=== PATIENT | male | born 1995 | race Caucasian/White ===

== ENCOUNTER 2018-11-05 13:35 | Emergency (ER) | payer SELFPAY ==
[~2018-11-05] VITALS: Ht 162.6 cm; Wt 74.0 kg
[2018-11-05] MEDS ORDERED: SODIUM CHLORIDE 0.9% 1,000 ML IV ONE (15:09)
[2018-11-05 16:09] LABS: BASOPHILS % 0.6 % (0.0-2.0); HEMATOCRIT. 45.4 % (42.0-52.0); HEMOGLOBIN. 15.7 g/dL (14.0-18.0); LYMPHOCYTES % 36.3 % (20.0-50.0); MEAN CORPUSCULAR HEMOGLOBIN 31.8 pg (28.0-32.0); MEAN CORPUSCULAR VOLUME 92.3 fL (80.0-94.0); MEAN PLATELET VOLUME 7.8 fl (7.4-10.4); MONOCYTES % 7.4 % (2.0-8.0); NEUTROPHILS % 54.7 % (40.0-76.0); PLATELET 378 x1000/uL (130-400); RED BLOOD CELL COUNT 4.92 mill/uL (4.7-6.1); RED CELL DISTRIBUTION WIDTH 13.4 % (11.6-14.6)
[2018-11-05 16:10] LABS: CHLORIDE 101 mEq/L (98-107)
[2018-11-05 16:14] LABS: ETHANOL BLOOD 272 mg/dL
[2018-11-05 16:30] VITALS: BP 101/54
== END 2018-11-05 18:18 | disposition left against medical advice (07) ==
LOC: ER 13:35
DX: F10.229 Alcohol dependence with intoxication, unspecified (principal); Y90.8 Blood alcohol level of 240 mg/100 ml or more
CPT/HCPCS: 36415; 80053; 85025; 87186; 99283; J7030